=== PATIENT | female | born 1975 | race Caucasian/White ===

== ENCOUNTER → 2024-12-19 | Outpatient (BNVA) | payer OTHER, SELFPAY | END | disposition home or self-care (01) | PROVIDERS: PCP Nurse Practitioner Family; Referring Provider Nurse Practitioner Family; Visit Provider Nurse Practitioner Family | DX: Z71.2 Person consulting for explanation of examination or test findings (principal); Z12.11 Encounter for screening for malignant neoplasm of colon; Z76.89 Persons encountering health services in other specified circumstances; I10 Essential (primary) hypertension; Z90.79 Acquired absence of other genital organ(s); R60.9 Edema, unspecified | CPT/HCPCS: 99204 ==

== ENCOUNTER 2024-12-22 09:29 | Emergency (ER) | payer OTHER, SELFPAY ==
[2024-12-22 09:33] VITALS: BMI 32.1
[2024-12-22 10:07] VITALS: BP 170/108; BP 172/100; PULSE 89; RESP 20; TEMP 36.7; O2SAT 99; BMI 40.3
--- NOTE | 2024-12-22 10:08 | EKG_ITS ---
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
--- NOTE | 2024-12-22 10:10 | XR_ITS ---
Examination: Duplex scan of the lower extremity, unilateral left complete Date and time of exam: December 22, 2024 1117 hrs. Indications: Left leg swelling and pain one year Technique: Duplex scan of the extremity veins using B-mode/grayscale imaging and Doppler spectral analysis and color flow Attention is directed to internal echogenicity, compression and augmentation involving these veins, color flow assessment, spectral analysis Findings: Major deep venous structures in the extremity demonstrate normal course and caliber. There is no evidence of deep vein thrombosis. Normal color flow and spectral analysis Impression: Negative for DVT..
--- NOTE | 2024-12-22 10:10 | XR_ITS ---
Examination: PA lateral chest 2 views Technique: Upright PA lateral chest 2 views Exam date and time: December 22, 2024 10:20 AM Indications: Chest pain with high blood pressure beginning 4 days ago. Findings: Normal heart size No lobar pneumonia or pulmonary edema Moderate osteopenia Impression: No lobar pneumonia or pulmonary edema
--- NOTE | 2024-12-22 10:11 | PD.EDRME ---
Rapid Medical Screening Exam RME Arrival date/time: 12/22/24 09:29 49-year-old female presents emergency department complains of hypertension, left-sided chest pain and left arm pain ongoing since Sunday. Patient also states that she has been having left leg swelling for some time Chief Complaint: Chest Pain Vital signs: Vital Signs Temperature 98.0 F 12/22/24 10:07 Pulse Rate 89 12/22/24 10:07 Respiratory Rate 20 12/22/24 10:07 Blood Pressure 172/100 H 12/22/24 10:07 Pulse Oximetry (%) 99 12/22/24 10:07 Oxygen Delivery Method Room Air 12/22/24 10:07
[2024-12-22 10:30] LABS: Basophils # (Auto) 0.1 Thou/mm3 (0.0-0.2); Basophils % (Auto) 1 % (0-2.5); Eosinophils # (Auto) 0.1 Thou/mm3 (0.0-0.5); Eosinophils % (Auto) 1 % (0-10); Hematocrit 43.9 % (36.0-46.0); Hemoglobin 14.7 g/dL (12.0-16.0); Immature Granulocytes % (Auto) 0 % (0-0); Immature Granulocytes Auto 0.01 Thou/mm3 (0.00-0.00); Lymphocytes # (Auto) 1.9 Thou/mm3 (1.0-4.8); Lymphocytes % (Auto) 28 % (10-50); Mean Corpuscular HGB Conc 33.5 g/dl (31.0-37.0); Mean Corpuscular Hemoglobin 28.5 pg (25.0-35.0); Mean Corpuscular Volume 85 fL (80-100); Monocytes # (Auto) 0.5 Thou/mm3 (0.0-0.8); Monocytes % (Auto) 7 % (0-12); Neutrophils # (Auto) 4.2 Thou/mm3 (1.8-7.7); Neutrophils % (Auto) 63 % (37-80); Nucleated Red Blood Cell % 0 /100 WBC (0); Platelet Count 340 Thou/mm3 (140-440); RDW Standard Deviation 40.8 fL (36.4-46.3); Red Blood Count 5.16 Miln/mm3 (4.00-5.20); White Blood Count 6.7 Thou/mm3 (3.6-11.0)
[2024-12-22 10:52] LABS: B-Type Natriuretic Peptide 22 pg/mL (0-100)
[2024-12-22 10:54] LABS: Alanine Aminotransferase 14 U/L (10-49); Albumin, Serum 4.9 gm/dL (3.5-5.0); Albumin/Globulin Ratio 1.4 (1.2-2.2); Alkaline Phosphatase 113 U/L (46-116); Anion Gap 10 (7-16); Aspartate Amino Transferase 18 U/L (0-34); BUN/Creatinine Ratio 21 Ratio (12-20); Bilirubin,Total 0.5 mg/dL (0.3-1.2); Blood Urea Nitrogen 15 mg/dL (9-23); Carbon Dioxide 25.6 mMol/L (20.0-31.0); Chloride 103 mMol/L (98-107); Creatinine (Component) 0.7 mg/dL (0.6-1.3); Estimated Creatinine Clearance 125.5 mL/min (>60); Globulin 3.5 gm/dL (2.3-3.5); Glucose 103 mg/dL (74-106); Lipase 44 U/L (12-53); Magnesium 2.1 mg/dL (1.6-2.6); Osmolality,Calculated 278 (275-295); Sodium 139 mMol/L (136-145); Total Protein 8.4 gm/dL (5.7-8.2); Troponin I < 0.002 ng/mL (0.0-0.045); eGFR > 60 See Note
[2024-12-22 11:37] LABS: Partial Thromboplastin Time 29.5 Seconds (22.0-36.0); Prothrombin Time 10.8 Seconds (9.0-12.2)
[2024-12-22 11:46] LABS: Collection Type, Urine Clean Catch
--- NOTE | 2024-12-22 11:46 | EDNOTE_ITS ---
ED Chest Pain RME/HPI General Chief Complaint: Chest Pain Stated Complaint: CP, SWEELING ON LEG, HIGH HTN, L ARM PAIN FOR DAYS Time Seen by Provider: 12/22/24 11:16 Arrival date/time: 12/22/24 09:29 RME / HPI RME / HPI narrative: 12/22/24 09:29 49-year-old female presents emergency department complains of hypertension, left-sided chest pain and left arm pain ongoing since Sunday. Patient also states that she has been having left leg swelling for some time This section includes all my notes and documentations, including HPI, PE, and ED course.? Sam Levy MD HPI: 49 year old female with history of hypertension presents to the ED for evaluation of chest pain, located most to the left side with radiation to her left arm, beginning intermittently over the course of 1-week. Patient additionally complains of headache, on/off for several days. Denies fevers, chills, sweats, cough, shortness of breath, abdominal pain, n/v/d, or urinary symptoms. ROS: All negative except as documented in HPI. Physical Exam: General:? Alert and oriented.? No acute distress when remaining still.?? Eyes:? Conjunctivae and lids clear.? ENT:? No nasal congestion.? Neck:? Supple.? Heart:? RRR.? Lungs:? No respiratory distress.? Good air movement.? No rhonchi, wheezing, rales.?? Abdomen:? Soft and nontender.?? Legs:? No clubbing, cyanosis, edema.? Skin:? Warm and dry.?? Neuro:? Alert and oriented X 3.?? I reviewed all diagnostic test results. My interpretation of the EKG is?sinus rhythm with no acute ST?T changes. My interpretation of the chest x-ray is no lobar pneumonia or pulmonary edema. My review of the venous doppler study is?negative for DVT. Blood tests and urine tests?unremarkable. At this point, diagnoses include?1 week chest pain of unclear etiology. Prescribed metoprolol and recommended more outpatient cardiac workup. Based on my best medical judgment, made decision no further evaluation or treatment indicated at this time.? Patient understands and agrees to the discharge instructions customized and printed, see below. Discharge instructions from Dr. Levy: 1. After extensive evaluation, there is no life-threatening condition.? Such as heart attack or pulmonary embolism (blood clots in your lungs) or pneumothorax (collapsed lung). 2. Your symptoms may be due to high BP and/or underlying stress or anxiety or nerves.? The pain may be originating from the chest wall and not from an internal organ. There are other possibilities. 3. Take metoprolol ER 100 mg at bedtime. You will live longer with slower heart rate and lower BP. 4. See a private doctor on 12/24/2024 for recheck and further care. To make sure there is no serious underlying heart condition, ask to help you get more tests for your heart that cannot be done here in the ER.? Such as Holter Monitor (cardiac monitoring at home from a day to even a month), heart stress test (on treadmill or with medication), echocardiogram (imaging of your heart structures), heart catherization (checking for blockages in your heart arteries), and a referral to see a Product Management Analyst. 5. Seek immediate medical care with worsening or with any concerns.?? Sam Levy MD Related Data Previous Rx's ?Medication ?Instructions ?Recorded fexofenadine 180 mg tablet 180 mg PO QDAY #90 tabs (Allergy Relief (fexofenadine)) losartan 100 mg tablet 100 mg PO QDAY #90 tabs 11/30 11/22 metoprolol succinate 100 mg 100 mg PO .bedtime #30 tab s 12/22/24 tablet,extended release 24 hr Allergies Allergy/AdvReac Type Severity Reaction Status Date / Time No Known Allergies Allergy Verified 12/22/24 09:33 Review of Systems Review of Systems Systems Reviewed: All systems reviewed, normal except as documented Past Medical History Social History SMOKING STATUS: Never smoker ED Exam Narrative Physical exam: As noted in HPI Course Course Course Narrative: chest xray ordered to help determine etiology of chest pain. Quality Measures none Orders Category Date Time Status EKG (ED ONLY) *Do not use* NOW Care 12/22/24 10:08 Completed EKG (ED Only) Stat Exams 12/22/24 10:08 Draft US venous doppler LE LT Stat Exams 12/22/24 10:10 Completed XR chest 2V Stat Exams 12/22/24 10:10 Completed B-Type Natriuretic Peptide Stat Lab 12/22/24 10:19 Completed CBC Stat Lab 12/22/24 10:19 Completed Comprehensive Metabolic Panel Stat Lab 12/22/24 10:19 Completed D-Dimer Stat Lab 12/22/24 10:19 Completed Drug Screen,Urine Stat Lab 12/22/24 11:40 Completed Lipase Stat Lab 12/22/24 10:19 Completed Magnesium Stat Lab 12/22/24 10:19 Completed Partial Thromboplastin Time Stat Lab 12/22/24 10:19 Completed Prothrombin Time with INR Stat Lab 12/22/24 10:19 Completed Troponin I Stat Lab 12/22/24 10:19 Completed Urinalysis Stat Lab 12/22/24 11:40 Completed Vital Signs Vital signs: Vital Signs Temperature 98.0 F 12/22/24 10:07 Pulse Rate 89 12/22/24 10:07 Respiratory Rate 20 12/22/24 10:07 Blood Pressure 172/100 H 12/22/24 10:07 Pulse Oximetry (%) 99 12/22/24 10:07 Oxygen Delivery Method Room Air 12/22/24 10:07 Pulse ox is 99% on room air which is adequate. Chest Pain MDM Narrative MDM Narrative:: IHattie am scribing for and in the presence of Dr. Levy. Patient data External records reviewed:: [facility] previous records (I reviewed outpatient PCP office notes from 12/19/2024) Clinical information provided by:: patient Social determinants that could affect healthcare access:: none Patient has the following chronic illnesses:: Hypertension How is presenting disease/condition affected by chronic disease/condition?: exacerbated by Evaluation data The following diagnostics were reviewed and interpreted by me:: lab results, radiology exam(s) and EKG tracing(s) Lab and/or radiology exams considered but not ordered:: None Interpretation Summary: Normal diagnostics Medications / Prescriptions Medications or Prescriptions considered but not ordered:: none Medication administrations:: None Consultations Consultation(s) initiated? (list below): No Diagnosis Chest Pain Differential Diagnosis: pneumothorax, stable angina, unstable angina pectoris, atypical chest pain, st elevation myocardial infarction, costochondritis, chest pain and biliary colic Most likely diagnosis given after review of the tests above:: Chest pain of unclear etiology Admission Indicated Admission indicated?: not indicated Explain why admission is indicated or not indicated:: Admission not indicated Admission Request Was there a request for admission?: No Disposition Plan Disposition Plan: Discharge Discharge Attestation Discharge Attestation: The patient and all family members were given an opportunity to ask questions and understood the discharge instructions. Discharge instructions specifically effects, indications for sooner follow up or return to the emergency department, and the expected course of current diagnosis. Patient condition: Stable Discharge Plan Plan Patient Disposition: HOME (Self Care) Prescriptions/Referrals Prescriptions/Med Rec: New metoprolol succinate 100 mg tablet extended release 24 hr 100 mg PO .bedtime Qty: 30 0RF No Action losartan 100 mg tablet 100 mg PO QDAY Qty: 90 0RF fexofenadine [Allergy Relief (fexofenadine)] 180 mg tablet 180 mg PO QDAY Qty: 90 0RF Referrals: No Primary/Family,Physician [Primary Care Provider] - In 1 week Problem List Clinical Impression: Chest pain, Hypertension Patient/Caregiver Discharge Instructions Discharge Activity: activity as tolerated Education Materials: ED Chest Pain, Uncertain Cause, ED Hypertension, Established Additional Instructions: Discharge instructions from Dr. Levy: 1. After extensive evaluation, there is no life-threatening condition.? Such as heart attack or pulmonary embolism (blood clots in your lungs) or pneumothorax (collapsed lung). 2. Your symptoms may be due to high BP and/or underlying stress or anxiety or nerves.? The pain may be originating from the chest wall and not from an internal organ. There are other possibilities. 3. Take metoprolol ER 100 mg at bedtime. You will live longer with slower heart rate and lower BP. 4. See a private doctor on 12/24/2024 for recheck and further care. To make sure there is no serious underlying heart condition, ask to help you get more tests for your heart that cannot be done here in the ER.? Such as Holter Monitor (cardiac monitoring at home from a day to even a month), heart stress test (on treadmill or with medication), echocardiogram (imaging of your heart structures), heart catherization (checking for blockages in your heart arteries), and a referral to see a Product Management Analyst. 5. Seek immediate medical care with worsening or with any concerns.?? Print Language: Kittitian Stand Alone Forms: [employer] Award Info., Patient Portal Info Letter
[2024-12-22 12:26] LABS: Amphetamine/Methamp Scrn,U Negative (Negative); Barbiturate Screen,Urine Negative (Negative); Benzodiazepines Screen,Urine Negative (Negative); Benzoylecgonine Screen, Ur Negative (Negative); Fentanyl Screen,Urine Negative (Negative); Opiate Screen,Urine Negative (Negative); THC Screen,Urine Negative (Negative)
[2024-12-22 12:30] VITALS: BP 140/92
[2024-12-22 12:48] LABS: Bilirubin,Urine Negative (Negative); Blood,Urine 1+ (Negative); Clarity,Urine Clear (Clear/Hazy); Color,Urine Lt-Yellow (Lt Yel-Yel); Glucose, Urine Negative (Negative); Ketones,Urine Trace (Negative); Leukocyte Esterase,Urine Negative (Negative); Nitrite,Urine Negative (Negative); Protein,Urine Negative (Neg - Trace); RBC,Urine 6 /hpf (0-3); Specific Gravity,Urine 1.019 (1.001-1.035); Squamous Epithelial Cell,Urine 9 /hpf (0-5); Urobilinogen,Urine Negative mg/dL (0.0-1.0); WBC,Urine < 1 /hpf (0-5)
[2024-12-22 14:28] LABS: D-Dimer < 250 ng/mL (<600)
== END 2024-12-22 17:29 | disposition home or self-care (01) ==
PROVIDERS: Nurse Practitioner Primary Care; Emergency Provider Emergency Medicine
DX: R07.89 Other chest pain (principal); I10 Essential (primary) hypertension
CPT/HCPCS: 36415; 71046; 80053; 80307; 81001; 83690; 83735; 83880; 84484; 85025; 85379; 85610; 85730; 93005; 93971; 99284

== ENCOUNTER → 2024-12-24 | Outpatient (BNVA) | payer OTHER, SELFPAY | END | disposition home or self-care (01) | PROVIDERS: PCP Nurse Practitioner Family; Referring Provider Nurse Practitioner Family; Visit Provider Nurse Practitioner Family | DX: R07.9 Chest pain, unspecified (principal); Z51.89 Encounter for other specified aftercare; I10 Essential (primary) hypertension; R31.9 Hematuria, unspecified; R60.9 Edema, unspecified; Z71.2 Person consulting for explanation of examination or test findings | CPT/HCPCS: 81001; 99214 ==

== ENCOUNTER → 2025-01-08 | Outpatient (BNVA) | payer OTHER, SELFPAY | END | disposition home or self-care (01) | PROVIDERS: PCP Nurse Practitioner Family; Referring Provider Nurse Practitioner Family; Visit Provider Nurse Practitioner Family | DX: Z00.01 Encounter for general adult medical examination with abnormal findings (principal); R60.9 Edema, unspecified; I10 Essential (primary) hypertension; Z90.79 Acquired absence of other genital organ(s); Z13.220 Encounter for screening for lipoid disorders; Z13.1 Encounter for screening for diabetes mellitus; E66.9 Obesity, unspecified; Z68.41 Body mass index [BMI] 40.0-44.9, adult; Z11.3 Encounter for screening for infections with a predominantly sexual mode of transmission | CPT/HCPCS: 99215 ==

== ENCOUNTER → 2025-01-20 | Outpatient (BNVA) | payer OTHER, SELFPAY | END | disposition home or self-care (01) | PROVIDERS: PCP Nurse Practitioner Family; Referring Provider Nurse Practitioner Family; Visit Provider Nurse Practitioner Family | DX: Z71.2 Person consulting for explanation of examination or test findings (principal); E78.5 Hyperlipidemia, unspecified; R73.03 Prediabetes; N95.9 Unspecified menopausal and perimenopausal disorder; E55.9 Vitamin D deficiency, unspecified; I10 Essential (primary) hypertension | CPT/HCPCS: 99213 ==

== ENCOUNTER → 2025-04-29 | Outpatient (BNVA) | payer OTHER, SELFPAY | END | disposition home or self-care (01) | PROVIDERS: PCP Nurse Practitioner Family; Referring Provider Nurse Practitioner Family; Visit Provider Nurse Practitioner Family | DX: Z71.2 Person consulting for explanation of examination or test findings (principal); E78.5 Hyperlipidemia, unspecified; I10 Essential (primary) hypertension | CPT/HCPCS: 99212; G0463 ==

== ENCOUNTER → 2025-08-12 | Outpatient (BNVA) | payer OTHER, SELFPAY | END | disposition home or self-care (01) | PROVIDERS: PCP Nurse Practitioner Family; Referring Provider Nurse Practitioner Family; Visit Provider Nurse Practitioner Family | DX: Z71.2 Person consulting for explanation of examination or test findings (principal); E78.5 Hyperlipidemia, unspecified; E66.9 Obesity, unspecified; I10 Essential (primary) hypertension; R73.03 Prediabetes; Z28.21 Immunization not carried out because of patient refusal; Z68.41 Body mass index [BMI] 40.0-44.9, adult | CPT/HCPCS: 99213 ==